=== PATIENT | male | born 1990 ===

== ENCOUNTER 2023-06-05 09:13 | Outpatient (AMB) | payer OTHER, SELFPAY ==
--- NOTE | 2023-06-05 09:31 | MHC.OFFWIV ---
Intake Vital Signs 06/05/23 09:33 Height 5 ft 8 in BP 94/60 Blood Pressure Location Lt brachial Position Sitting Pulse 63 Pulse Source Pulse Oximeter Temp 97.4 F Temp Source Temporal Artery Scan Pulse Oximetry (%) 97 Oxygen Delivery Method Room Air Intake Visit Reasons: [employer]EW[employer] RT ankle injury Intake Note: Pt is here c/o right ankle pain. Pt states he tripped and landed on his ankle/ Patient Tobacco Use Status: Never used Tobacco Allergies No Known Allergies Allergy (Verified 06/05/23 09:33) Do you need a note to return to daycare/school/sports/work: Yes HPI HPI Comments History of Present Illness Details 33-year-old male who presents for right ankle pain. Patient stepped off a truck yesterday and believes he inverted his ankle. He is complaining of pain on the outer portion of his ankle and swelling. Able to ambulate with some difficulty. PFSH Social History Patient Tobacco Use Status: Never used Tobacco Review of Systems Musc Details: Right ankle pain Physical Exam Vital Signs: Last Vital Signs Temp 97.4 F 06/05/23 09:33 Pulse 63 06/05/23 09:33 BP 94/60 06/05/23 09:33 Pulse Ox 97 06/05/23 09:33 Oxygen Delivery Method Room Air 06/05/23 09:33 Extrem Other: TTP over the distal portion of the lateral malleolus. Pulses sensation is intact Assessment & Plan Assessment & Plan (1) Ankle sprain: Code(s): S93.409A - Sprain of unspecified ligament of unspecified ankle, initial encounter Plan 33-year-old male who presents for right ankle pain. VSS. Exam patient presents alert and oriented no acute distress. Exam notable for TTP over the distal portion of the lateral malleolus. Patient likely suffering from ankle sprain hand given tenderness on examination will form x-rays. X-rays show no acute abnormality. Patient likely suffering from a close pain. Patient denies rest ice elevation weightbearing as tolerated. Discharge instructions, follow up and treatment are discussed with patient in my usual fashion. Alternatives in treatment are also discussed. The patient will return for worsening symptoms or as needed. Advised that any labs/imaging ordered will be followed up on and contact made if further treatment needed. Counseled that patient's condition may require further evaluation and/or treatment. Symptoms of concern for worsening disorder discussed in detail in my customary manner. Patient does verbalize understanding of the plan, there are no apparent barriers to communication. The patient is given the opportunity to ask questions and have them answered to his/her satisfaction Orders: Orders XR ankle RT 2V Today M25.579 - Pain in unspecified ankle and joints of unspecified foot Patient Instructions: You were seen by me in walk-in clinic for your ankle. You received x-rays which were negative for fracture. We believe your likely suffering from in ankle sprain. Recommend rest Tylenol Motrin as needed and early mobilization. Good ankle exercises to utilize our jarring alphabet with her big toe. He may weightbear as tolerated. Please refrain from participating in vigorous activity until you are feeling better. If experiencing worsens and we should report to the emergency department or follow-up with your PCP in Orthopedics as needed. Coding Level of Care Code New Pt Level 3 (18283) Diagnoses Ankle sprain S93.409A
[2023-06-05 09:33] VITALS: BP 94/60; PULSE 63; TEMP 36.3; O2SAT 97
== END 2023-06-05 10:30 | disposition home or self-care (01) ==
PROVIDERS: Visit Provider Physician Assistant
DX: S93.409A Sprain of unspecified ligament of unspecified ankle, initial encounter (principal)
CPT/HCPCS: 99203